=== PATIENT | female | born 2005 | race African-American/Black ===

== ENCOUNTER 2023-05-03 21:43 | Emergency (ER) | payer OTHER ==
[~2023-05-03] VITALS: Ht 170.2 cm; Wt 74.5 kg
[2023-05-04] MEDS: NS 1,000 ML IV ONE (01:05)
[2023-05-04] MEDS: diphenhydrAMINE 50MG/ML VIAL IV ONE (01:05)
[2023-05-04] MEDS: METOCLOPRAMIDE INJ 10MG/2ML VIAL IV ONE (01:05)
[2023-05-04] MEDS: KETOROLAC 30 MG/ML 1ML VIAL IV ONE (01:06)
[2023-05-04 02:53] VITALS: BP 109/59; TEMP 98.3; O2SAT 96
== END 2023-05-04 02:54 | disposition home or self-care (01) ==
LOC: M ED 21:43
DX: G43.909 Migraine, unspecified, not intractable, without status migrainosus (principal)
CPT/HCPCS: 87486; 87581; 87633; 87798; 96361; 96374; 96375; 99283; J1200; J1885; J2765